=== PATIENT | female | born 1965 | race Caucasian/White ===

== ENCOUNTER 2021-07-04 15:15 | Emergency (ER) | payer OTHER ==
[2021-07-04 15:55] VITALS: BP 118/75; PULSE 80; TEMP 97.9; BMI 33.8
[2021-07-04] MEDS ORDERED: IBUPROFEN 600 MG TABLET (FP) PO ONE ×2 (16:42→17:19)
== END 2021-07-04 17:28 | disposition home or self-care (01) ==
LOC: JER 15:15
DX: M79.671 Pain in right foot (principal)
CPT/HCPCS: 73610-TC-RT-FY; 73630-TC-RT-FY; 99283-25